=== PATIENT | female | born 1985 | race Caucasian/White ===

== ENCOUNTER 2025-04-18 17:28 | Inpatient (IN) | payer SELFPAY ==
[~2025-04-18] VITALS: Ht 162.6 cm; Wt 70.3 kg
[2025-04-18 17:38] VITALS: O2SAT 100
[2025-04-18 17:54] LABS: CLARITY URINE CLEAR (CLEAR); COLOR URINE YELLOW (YELLOW); GLUCOSE URINE NEGATIVE (NEGATIVE); KETONES URINE NEGATIVE (NEGATIVE); LEUKOCYTE ESTERASE URINE TRACE (NEGATIVE); NITRITE URINE NEGATIVE (NEGATIVE); OCCULT BLOOD URINE NEGATIVE (NEGATIVE); PH URINE 6.0 (4.5-8.0); PROTEIN URINE NEGATIVE (NEGATIVE); SPECIFIC GRAVITY URINE 1.012 (1.005-1.030); UROBILINOGEN URINE 0.2 E.U./dL (0.2-1.0)
[2025-04-18 18:13] LABS: BACTERIA URINE TRACE; RBC URINE 0-2 /hpf (0-2); SQUAMOUS EPITHELIAL CELL URINE 1+ /lpf (RARE/1+); WBC URINE 0-2 /hpf (0-2)
[2025-04-18] MEDS ORDERED: MORPHINE SULFATE 4 MG/ML INJ (FOR IV/IM USE) IV ONE (18:30)
[2025-04-18] MEDS ORDERED: ONDANSETRON HCL 4MG/2ML INJ IV ONE (18:30)
[2025-04-18 18:49] LABS: BASOPHILS % 0.6 % (0.0-2.0); EOSINOPHILS % 1.0 % (0.0-5.0); HEMATOCRIT. 35.7 % (36.0-48.0); HEMOGLOBIN. 11.6 g/dL (12.0-16.0); LYMPHOCYTES % 15.9 % (20.0-50.0); MEAN PLATELET VOLUME 7.6 fl (7.4-10.4); MONOCYTES % 6.2 % (2.0-8.0); NEUTROPHILS % 76.3 % (40.0-76.0); PLATELET 435 x1000/uL (130-400); RED BLOOD CELL COUNT 3.78 mill/uL (4.2-5.4); RED CELL DISTRIBUTION WIDTH 14.0 % (11.6-14.6)
[2025-04-18 19:03] LABS: HCG SCREEN NEGATIVE
[2025-04-18 19:06] LABS: CREATININE 0.7 mg/dL (0.6-1.0); UREA NITROGEN BLOOD 10 mg/dL (9-23)
[2025-04-18] MEDS: SODIUM CHLORIDE 0.9% (SEPSIS BOLUS) IV ONE (19:10)
[2025-04-18] MEDS: PIPERACILLIN/TAZO 3.375G/50ML 50 ML IV ONE (20:07)
[2025-04-18] MEDS: IOHEXOL-300 100 ML BOTTLE ONE (20:11)
[2025-04-18] MEDS: ONDANSETRON HCL 4MG/2ML INJ IV SCH (20:19)
[2025-04-18] MEDS: MORPHINE SULFATE 4 MG/ML INJ (FOR IV/IM USE) IV SCH (20:20)
[2025-04-18 21:13] LABS: INR 1.0
[2025-04-18] MEDS ORDERED: DOCUSATE SODIUM 100MG CAPSULE PO PRN (21:45)
[2025-04-18] MEDS ORDERED: ONDANSETRON HCL 4MG/2ML INJ IV PRN (21:45)
[2025-04-18] MEDS ORDERED: IPRATROPIUM/ALBUTEROL 0.5-3(2.5)MG/3ML NEB HHN PRN (21:45)
[2025-04-18] MEDS ORDERED: CLONIDINE 0.1MG TABLET PO PRN (21:45)
[2025-04-18] MEDS ORDERED: DEXT 5%/0.45% NACL 1000ML 1,000 ML IV SCH (22:00)
[2025-04-18] MEDS: ACETAMINOPHEN 325MG TABLET PO PRN (22:10)
[2025-04-19 00:30] LABS: TROPONIN I HIGH SENSITIVITY < 4 ng/L (3.0-34)
[2025-04-19 03:20] VITALS: BP 110/54; PULSE 76; RESP 18; TEMP 36.6404
[2025-04-19] MEDS: PIPERACILLIN/TAZO 3.375G/50ML 50 ML IV SCH (05:29)
[2025-04-19] MEDS ORDERED: INFLUENZA VACCINE 05/PF 0.5 ML SYRINGE IM ONE (06:15)
[2025-04-19 07:56] LABS: *AMPHETAMINES SCREEN URINE NEGATIVE (NEGATIVE); *BARBITURATES SCREEN URINE NEGATIVE (NEGATIVE); *BENZODIAZEPINES SCREEN URINE NEGATIVE (NEGATIVE); *COCAINE SCREEN URINE NEGATIVE (NEGATIVE); CANNABINOID URINE SCREEN NEGATIVE (NEGATIVE); ECSTASY MDMA SCREEN URINE NEGATIVE (NEGATIVE); METHADONE URINE SCREEN NEGATIVE (NEGATIVE); OPIATES URINE SCREEN NEGATIVE (NEGATIVE); PHENCYCLIDINE URINE SCREEN NEGATIVE (NEGATIVE)
[2025-04-19 08:00] VITALS: PULSE 74; RESP 18; TEMP 36.6; O2SAT 100
[2025-04-19] MEDS: PANTOPRAZOLE SODIUM 40 MG/VIAL IV SCH (08:59)
[2025-04-19] MEDS ORDERED: NITR100C MT (11:34)
[2025-04-19] MEDS ORDERED: PROT20 MT (11:34)
[2025-04-19 12:00] VITALS: BP 121/74; PULSE 74; RESP 18; TEMP 36.8; O2SAT 99
[2025-04-19 12:08] VITALS: BP 121/73; PULSE 80; RESP 18; TEMP 98.3
== END 2025-04-19 14:40 | disposition home or self-care (01) | DRG 720 ==
LOC: ER 17:28 → 6EST 21:26 → EDBEDREQ 21:33 → EDBEDREQTM 21:33 → EDBEDREQSVC 21:33 → ENRESERV 04-19 01:46
PROVIDERS: ADMIT Hospitalist; ATTEND Hospitalist
DX: A41.9 Sepsis, unspecified organism (principal); D64.9 Anemia, unspecified; N39.0 Urinary tract infection, site not specified; D75.839 Thrombocytosis, unspecified; Z98.891 History of uterine scar from previous surgery; Z79.899 Other long term (current) drug therapy
CPT/HCPCS: 36415; 74177; 80048; 80305; 81003; 83605; 84145; 84484; 84703; 85025; 93005; 99291; J2270; J2405; J2470; J2543; J7030; Q9967